=== PATIENT | female | born 1980 | race Caucasian/White ===

== ENCOUNTER 2018-08-27 14:19 | Emergency (ER) | payer OTHER ==
[2018-08-27] MEDS ORDERED: HYDROXYZINE HCL 25 MG TABLET ONE (14:52)
== END 2018-08-27 15:08 | disposition home or self-care (01) ==
LOC: EDH 14:19
DX: B86 Scabies (principal); L50.9 Urticaria, unspecified

== ENCOUNTER 2018-09-16 17:23 | Emergency (ER) | payer SELFPAY | END 2018-09-16 18:02 | disposition home or self-care (01) | LOC: EDH 17:23 | DX: S80.862A Insect bite (nonvenomous), left lower leg, initial encounter (principal); S80.861A Insect bite (nonvenomous), right lower leg, initial encounter; S40.862A Insect bite (nonvenomous) of left upper arm, initial encounter; S40.861A Insect bite (nonvenomous) of right upper arm, initial encounter; W57.XXXA Bitten or stung by nonvenomous insect and other nonvenomous arthropods, initial encounter; Y93.89 Activity, other specified; Y92.89 Other specified places as the place of occurrence of the external cause; Y99.8 Other external cause status | CPT/HCPCS: 99281 ==